=== PATIENT | female | born 1965 | race Caucasian/White ===

== ENCOUNTER 2017-01-09 22:38 | Emergency (ER) | payer OTHER ==
[2017-01-09 22:44] VITALS: BP 148/70
[2017-01-09] MEDS ORDERED: Albuterol/Ipratropium 3.0-0.5 MG/3 ML Neb Soln NEB ONE ×2 (22:56→23:41)
[2017-01-09 23:28] LABS: CHLORIDE,CL 106 mmol/L (98-107); SODIUM,NA 143 mmol/L (136-145)
[2017-01-09] MEDS ORDERED: methylPREDNISolone Sodium Succinate 125 MG/2 ML SDV IM ONE (23:41)
--- NOTE | 2017-01-09 23:48 | EDM.PDOC ---
ED HISTORY OF PRESENT ILLNESS - General Chief Complaint: Respiratory Problem Stated Complaint: cough Time Seen by Provider: 01/09/17 23:19 Source of Information: Reports: Patient History Limitations: Reports: No limitations - History of Present Illness INITIAL COMMENTS - FREE TEXT/NARRATIVE: 3 week history cough. Cough is worsening. No fevers/chills. Nausea with cough at times, no emesis. Mild loose stools but was placed on Levaquin prior to that. Had course of prednisone. Unable to afford inhaler prescribed by primary provider. Not able to sleep for 4 nights. Feels SOB at times. Denies having fevers/body aches/systemic symptoms at beginning of illness. Not tested for influenza. Normal chest xray at that time. Non-smoker. Hx Laurita's, HTN, diabetes. No other complaints. ROS otherwise negative. - Related Data Allergies/ADRs: Allergies Allergy/AdvReac Type Severity Reaction Status Date / Time hydrocodone Allergy Rash Verified 01/09/17 23:17 povidone-iodine Allergy Rash Verified 01/09/17 23:03 [From Betadine] secobarbital [From Seconal] Allergy Rash Verified 01/09/17 23:03 soap [From Betadine] Allergy Rash Verified 01/09/17 23:03 Home Meds: Home Meds Albuterol [Ventolin HFA] 0 gm INH Q4H PRN #1 inhaler 01/09/17 [Rx] Albuterol/Ipratropium [DuoNeb 3.0-0.5 MG/3 ML] 3 ml NEB Q6HRRT 01/09/17 [History ] Aspirin [Halfprin] 81 mg PO BRK 01/09/17 [History] Benzonatate [Tessalon Perles] 200 mg PO TID PRN #30 cap 01/09/17 [Rx] Doxycycline [Vibramycin] 100 mg PO BID #14 cap 01/09/17 [Rx] Levothyroxine [Synthroid] 50 mcg PO ACBREAKFAST 01/09/17 [History] Lisinopril 5 mg PO DAILY 01/09/17 [History] Metoprolol Tartrate 0.5 tab PO BID 01/09/17 [History] atorvaSTATin [Lipitor] 10 mg PO BEDTIME 01/09/17 [History] metFORMIN HCl [Metformin HCl ER] 500 mg PO DAILY 01/09/17 [History] predniSONE [Prednisone] 20 mg PO DAILY #8 tablet 01/09/17 [Rx] Past Medical History - Past Health History Medical/Surgical History: Denies Medical/Surgical History HEENT History: Reports: Impaired vision, Other (see below) Other HEENT History: wears glasses Cardiovascular History: Reports: High cholesterol, Hypertension Gastrointestinal History: Reports: GERD Musculoskeletal History: Reports: Arthritis Endocrine/Metabolic History: Reports: Diabetes, type II, Hypothyroidism, Other ( see below) Other Endocrine/Metabolic History: hasimotos - Past Surgical History HEENT Surgical History: Reports: Adenoidectomy GI Surgical History: Reports: Appendectomy, Cholecystectomy, Evelyn fundoplication Female Surgical History: Reports: Hysterectomy Musculoskeletal Surgical History: Reports: Carpal tunnel Social & Family History - Tobacco Use Smoking Status *Q: Never Smoker Second Hand Smoke Exposure: Yes - Caffeine Use Caffeine Use: Reports: None - Recreational Drug Use Recreational Drug Use: No ED ROS GENERAL - Review of Systems Review Of Systems: ROS reveals no pertinent complaints other than HPI. ED EXAM, GENERAL - Physical Exam Exam: See Below Exam Limited By: No limitations General Appearance: alert, WD/WN, obese, other (Intermittent pronounced coughing. Non-productive. ) Eye Exam: bilateral eye: EOMI, PERRL Ears: normal external exam, normal canal, hearing grossly normal Nose: No: nasal drainage Throat/Mouth: Normal inspection, Normal lips, Normal teeth, Normal gums, Normal oropharynx, Normal voice, No airway compromise Head: atraumatic, normocephalic Neck: normal inspection, supple, non-tender, full range of motion. No: lymphadenopathy (L), lymphadenopathy (R) Respiratory/Chest: no respiratory distress, no accessory muscle use, chest non- tender, wheezing (bilateral, lower halves of lungs). No: crackles, rales, rhonchi, stridor Cardiovascular: regular rate, rhythm, no edema, no murmur GI/Abdominal: soft, non tender Back Exam: normal inspection Extremities: normal inspection, normal capillary refill Neurological: alert, oriented, normal cognition, normal gait Psychiatric: normal affect, normal mood Skin Exam: Warm, Dry, Intact, Normal color Course - Vital Signs Last Recorded V/S: Last Vital Signs Temp 36.8 C 01/09/17 22:38 Pulse 89 01/10/17 00:09 Resp 18 01/09/17 22:38 BP 148/70 H 01/09/17 22:38 Pulse Ox 97 01/10/17 00:09 - Orders/Labs/Meds Orders: Active Orders 24 hr Category Date Time Status RT Aerosol Therapy [RC] ASDIRECTED Care 01/09/17 22:56 Active RT Aerosol Therapy [RC] ASDIRECTED Care 01/09/17 23:41 Ordered Chest 2V [CR] Stat Exams 01/09/17 22:54 Taken Labs: Laboratory Tests 01/09/17 01/09/17 01/09/17 Range/Units 23:10 23:10 23:10 WBC 13.9 H (4.0-10.2) K/uL RBC 4.64 (3.77-5.09) M/uL Hgb 13.5 (11.7-15.5) g/dL Hct 41.6 (34.0-46.0) % MCV 89.7 (84.0-98.0) fL MCH 29.1 (28.2-33.3) pg MCHC 32.5 (31.7-36.0) g/dL RDW 13.0 (11.2-14.1) % Plt Count 325 (150-350) K/uL Neut % (Auto) 49.2 (45.0-80.0) % Lymph % (Auto) 36.3 (10.0-50.0) % Burke % (Auto) 6.5 (2.0-14.0) % Eos % (Auto) 7.4 H (0.0-5.0) % Baso % (Auto) 0.6 (0.0-2.0) % Neut # (Auto) 6.82 (1.40-7.00) K/uL Lymph # (Auto) 5.04 H (0.50-3.50) K/uL Burke # (Auto) 0.90 (0.00-1.00) K/uL Eos # (Auto) 1.03 H (0.00-0.50) K/uL Baso # (Auto) 0.08 (0.00-0.20) K/uL D-Dimer, Quantitative < 100 (0-400) ng/mL Sodium 143 (136-145) mmol/L Potassium 3.9 (3.5-5.1) mmol/L Chloride 106 (98-107) mmol/L Carbon Dioxide 26.6 (21.0-32.0) mmol/L BUN 18 (7-18) mg/dL Creatinine 0.79 (0.51-1.17) mg/dL Est Cr Clr Drug Dosing 83.77 mL/min Estimated GFR (MDRD) > 60 mL/min Glucose 146 H (74-106) mg/dL Calcium 9.1 (8.5-10.1) mg/dL Total Bilirubin 0.4 (0.2-1.0) mg/dL AST 13 L (15-37) U/L ALT 33 (12-78) U/L Alkaline Phosphatase 94 (46-116) IU/L Total Protein 7.9 (6.4-8.2) g/dL Albumin 3.9 (3.4-5.0) g/dL Meds: Medications Discontinued Medications Generic Name Dose Route Start Last Admin Trade Name Freq PRN Reason Stop Dose Admin Albuterol/Ipratropium 3 ml 01/09/17 22:56 01/09/17 23:05 Duoneb 3.0-0.5 Mg/3 Ml [facility] 01/09/17 22:57 3 ml ONETIME ONE Administration Albuterol/Ipratropium 3 ml 01/09/17 23:41 01/09/17 23:46 Duoneb 3.0-0.5 Mg/3 Ml [facility] 01/09/17 23:42 3 ml ONETIME ONE Administration Benzonatate 200 mg 01/09/17 23:52 01/10/17 00:05 Tessalon Perles PO 01/09/17 23:53 200 mg ONETIME ONE Administration Ketorolac Tromethamine 60 mg 01/09/17 23:52 01/10/17 00:06 Toradol IM 01/09/17 23:53 60 mg ONETIME ONE Administration Methylprednisolone Sodium Succinate 125 mg 01/09/17 23:41 01/09/17 23:46 Solu-Medrol IM 01/09/17 23:42 125 mg ONETIME ONE Administration - Radiology Interpretation Free Text/Narrative:: Chest film did not show focal infiltrate suggestive of bacterial pneumonia. - Re-Assessments/Exams Free Text/Narrative Re-Assessment/Exam: 01/09/17 23:48 Mildly elevated white count. Increase in relative number lymphocytes and eosinophils noted. Chemistry and DDimer overall unremarkable. Suspect viral cause. Patient received several neb treatments as well as Toradol and Solu-medrol. Plan to have her D/C Levaquin. Will continue her on course of prednisone, albuterol inhaler, Tessalon Pearles, and Doxy. Doxy given due to prolonged worsening nature of illness/cough. Patient aware that this is more likely viral in nature and antibiotic will not be helpful. Free Text/Narrative Re-Assessment/Exam: 01/10/17 00:19 Oxygen sats and cough improved prior to discharge. Patient more comfortable. Departure - Departure Time of Disposition: 00:20 Disposition: Home, Self-Care 01 Condition: good Clinical Impression: Bronchitis Prescriptions: Albuterol [Ventolin HFA] 0 gm INH Q4H PRN #1 inhaler PRN Reason: Cough Benzonatate [Tessalon Perles] 200 mg PO TID PRN #30 cap PRN Reason: Cough Doxycycline [Vibramycin] 100 mg PO BID #14 cap predniSONE [Prednisone] 20 mg PO DAILY #8 tablet Instructions: Shortness of Breath, [id number], Acute Bronchitis, [id number] , Doxycycline tablets or capsules, Albuterol; Ipratropium inhalation aerosol, Prednisone tablets, Benzonatate capsules Forms: ED Department Discharge Additional Instructions: Watch for changes and follow up if you experience worsening problems. Follow up if you are not improved by end of week. - My Orders Last 24 Hours: My Active Orders 01/09/17 22:54 Chest 2V [CR] Stat 01/09/17 22:56 RT Aerosol Therapy [RC] ASDIRECTED 01/09/17 23:41 RT Aerosol Therapy [RC] ASDIRECTED - Assessment/Plan Last 24 Hours: My Active Orders 01/09/17 22:54 Chest 2V [CR] Stat 01/09/17 22:56 RT Aerosol Therapy [RC] ASDIRECTED 01/09/17 23:41 RT Aerosol Therapy [RC] ASDIRECTED
[2017-01-09] MEDS ORDERED: Benzonatate 100 MG Cap PO ONE (23:52)
[2017-01-09] MEDS ORDERED: Ketorolac 60 MG/2 ML SDV IM ONE (23:52)
== END 2017-01-10 00:27 | disposition home or self-care (01) ==
LOC: LL.ED 22:38
DX: J40 Bronchitis, not specified as acute or chronic (principal); E78.00 Pure hypercholesterolemia, unspecified; I10 Essential (primary) hypertension; K21.9 Gastro-esophageal reflux disease without esophagitis; E11.9 Type 2 diabetes mellitus without complications; E03.9 Hypothyroidism, unspecified; Z88.8 Allergy status to other drugs, medicaments and biological substances; Z90.710 Acquired absence of both cervix and uterus; Z79.899 Other long term (current) drug therapy; Z88.5 Allergy status to narcotic agent; Z91.09 Other allergy status, other than to drugs and biological substances; Z79.82 Long term (current) use of aspirin
CPT/HCPCS: 36415; 71020; 80053; 85025; 85379; 94640; 96372; 99283; A9270; J1885; J2930; 94664

== ENCOUNTER 2017-03-29 04:02 | Observation (INO) | payer OTHER ==
[2017-03-29] MEDS ORDERED: Aspirin 81 MG Tab.Chew CHEW ONE (04:15)
[2017-03-29] MEDS ORDERED: Famotidine 20 MG/2 ML SDV IVPUSH ONE (04:15)
[2017-03-29] MEDS ORDERED: Ticagrelor 90 MG Tab PO ONE (04:15)
--- NOTE | 2017-03-29 04:29 | EDM.PDOC ---
ED HPI GENERAL MEDICAL PROBLEM - General Chief Complaint: Chest Pain Stated Complaint: chest pressure Time Seen by Provider: 03/29/17 04:14 Source of Information: Reports: Patient, Family (), Old Records ([facility] EMR. No paper hospital chart available.) History Limitations: Reports: No Limitations - History of Present Illness INITIAL COMMENTS - FREE TEXT/NARRATIVE: Patient was brought to the emergency room via private automobile by her for evaluation of 8/10 retrosternal chest pressure, which woke her up from her sleep at about 3 AM this morning. She states that this discomfort radiates into the intrascapular region bilaterally and neck bilaterally with some mild nausea but no diaphoresis. The patient denies any heart flutter, dizziness, orthostasis , orthopnea, diaphoresis, paresthesias, recent decreased exercise tolerance, or any other anginal-type symptoms. No recent history of abdominal pain, heartburn , nausea, diarrhea, melena, gross hematochezia, or any food intolerance, including fatty foods, etc. with last episode of heartburn about one year ago. She did have a normal bowel movement yesterday. The patient also denies any recent fever, cough, wheezing, dyspnea, etc.. She has not taken any medications for her above symptoms. Onset: Today, Sudden Onset Date: 03/29/17 Onset Time: 03:00 Duration: Getting Worse, Intermittent Location: Reports: Neck, Chest, Back, Radiates to (As above) Quality: Reports: Pressure. Denies: Burning Severity: Moderate Improves with: Reports: None Worsens with: Reports: None Context: Reports: Other (As above) Associated Symptoms: Reports: Chest Pain, Nausea/Vomiting (No emesis). 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 below) (None) Mid-Sternal Chest Pain Score (Numeric/FACES): 8 - Related Data Allergies Allergy/AdvReac Type Severity Reaction Status Date / Time hydrocodone Allergy Rash Verified 03/29/17 04:33 povidone-iodine Allergy Rash Verified 03/29/17 04:33 [From Betadine] secobarbital [From [place]] Allergy Rash Verified 03/29/17 04:33 soap [From Betadine] Allergy Rash Verified 03/29/17 04:33 Home Meds: Home Meds Aspirin [Halfprin] 81 mg PO BRK 01/09/17 [History] Levothyroxine [Synthroid] 50 mcg PO ACBREAKFAST 01/09/17 [History] Lisinopril 5 mg PO DAILY 01/09/17 [History] Metoprolol Tartrate 0.5 tab PO BID 01/09/17 [History] atorvaSTATin [Lipitor] 10 mg PO BEDTIME 01/09/17 [History] metFORMIN HCl [Metformin HCl ER] 500 mg PO DAILY 01/09/17 [History] Past Medical History HEENT History: Reports: Impaired Vision, Other (See Below). Denies: Allergic Rhinitis, Cataract, Glaucoma, Hard of Hearing, Macular Degeneration, Retinal Detachment Other HEENT History: wears glasses Cardiovascular History: Reports: High Cholesterol, Hypertension. Denies: Afib, Aneurysm, Arrhythmia, Blood Clots/VTE/DVT, CAD, Heart Failure, Heart Murmur, WI , Syncope Respiratory History: Reports: None. Denies: Asthma, COPD, Intubation, Previous , PE, Pneumothorax, Sleep Apnea, TB Gastrointestinal History: Reports: Cholelithiasis, Chronic Constipation, Gastritis, GERD, Hiatal Hernia, Other (See Below). 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 Denies: Amputation, Back Pain, Chronic, Fracture, Gout, Neck Pain, Chronic, RA, SLE Neurological History: Denies: Cerebral Aneurysms, Concussion, CVA, Head Trauma, MS, Neuropathy, Peripheral, Parkinson's, Seizure, TIA Psychiatric History: Reports: None. Denies: Abuse, Victim of, ADD, ADHD, Addiction, Anxiety, Depression, Psych Hospitalization(s), PTSD, Suicide Attempt , Suicidal Ideation Endocrine/Metabolic History: Reports: Diabetes, Type II, Hypothyroidism, Multinodular Thyroid, Obesity/BMI 30+, Other (See Below). Denies: IDDM Other Endocrine/Metabolic History: Borderline goiter with multinodular thyroid and negative thyroid biopsies as below, history of Laurita's Hematologic History: Reports: None. Denies: Anemia, Blood Transfusion(s), Iron Deficiency Immunologic History: Reports: None. Denies: AIDS, HIV, SLE Oncologic (Cancer) History: Reports: Cervix, Other (See Below). Denies: Basal Cell Carcinoma, Hodgkin's Lymphoma, Leukemia, Lymphoma, Malignant Melanoma, Non- Hodgkin's Lymphoma, Squamous Cell Carcinoma, Thyroid Other Oncologic History: History of atypical Pap smears in her early 20s with procedures as below and no history of cervical cancer or subsequent abnormalities Dermatologic History: Reports: None. Denies: Eczema, Psoriasis - Infectious Disease History Infectious Disease History: Reports: Chicken Pox, Measles. Denies: C-Difficile , Meningitis, Mononucleosis, MRSA, Mumps, Pertussis (Whooping Cough), Rheumatic Fever, Rubella, Scarlet Fever, Shingles, TB, VRE - Past Surgical History Head Surgeries/Procedures: Reports: None HEENT Surgical History: Reports: Oral Surgery, Other (See Below). Denies: Adenoidectomy, Cataract Surgery, Eye Surgery, Laser Surgery, LASIK, Myringotomy w Tube(s), Naso-Sinus Surgery, Tonsillectomy Other HEENT Surgeries/Procedures: [place] teeth extraction 4 in her early 20s Cardiovascular Surgical History: Reports: None. Denies: Varicose, Vascular Surgery Respiratory Surgical History: Reports: None. Denies: Thoracentesis GI Surgical History: Reports: Appendectomy, Cholecystectomy, Colonoscopy, EGD, Evelyn Fundoplication, Other (See Below). Denies: Hernia, Abdominal, Hernia, Inguinal, Hernia Repair/Other, Polypectomy Other GI Surgeries/Procedures: Evelyn fundoplication in about 2001, last EGD in about 2001, last colonoscopy in about 2006, appendectomy at age 20, open cholecystectomy at age 27, no surgeries required for her recurrent volvulus Female Surgical History: Reports: Cervical Conization, Cervical Cryotherapy, Hysterectomy, LEEP, Salpingo-Oophorectomy, Tubal Ligation, Other (See Below). Denies: Breast Biopsy, Section, D&C, Endometrial Ablation Other Female Surgeries/Procedures: Cryotherapy and LEEP procedure at age 23, bilateral tubal ligation at age 31, complete hysterectomy including bilateral salpingo-oophorectomy at age 34 secondary to endometriosis, uterine fibroids, and dysfunctional uterine bleeding Endocrine Surgical History: Reports: Thyroid Biopsy, Other (See Below) Other Endocrine Surgeries/Procedures: Bilateral thyroid biopsy in 2016 Neurological Surgical History: Reports: None. Denies: C-Spine, Discectomy, Laminectomy, Lumbar Spine, Spinal Fusion, Vertebroplasty Musculoskeletal Surgical History: Reports: Carpal Tunnel, Shoulder Surgery, Other (See Below). Denies: Arthroscopic Knee, Arthroscopic Procedure, Ganglion Cyst, Joint Replacement, ORIF Other Musculoskeletal Surgeries/Procedures:: Arthroscopic left shoulder surgery for a bone spur and March 2015, right carpal tunnel release in 2005 Oncologic Surgical History: Reports: None. Denies: Biopsy of Breast Dermatological Surgical History: Reports: None - Past Imaging History Past Imaging History: Reports: Cardiac Echo (December 2016 at [facility] with no records available), Mammogram (Last mammogram in about 2013), Stress Testing (Cardiolite stress test in December 2016 at [facility] with no records available), Ultrasound (Thyroid ultrasound on 05/05/16). Denies: Angiography Social & Family History - Family History HEENT: Reports: Macular Degeneration, Other (See Below). Denies: Allergic Rhinitis, Cataract, Glaucoma, Retinal Detachment Other HEENT Family History: Mother with macular degeneration Cardiac: Reports: Blood Clots/VTE/DVT, Bypass, CAD, High Cholesterol, Hypertension, WI, Other (See Below). Denies: Afib, Aneurysm, Arrhythmia, Heart Failure, Heart Murmur, Pacemaker, PVD/COD, Stent, Syncope Other Cardiac Family History: Maternal grandfather with WI in his 80s of history of CABG, mother with hypertension and hyperlipidemia, mother with history of postoperative DVT after knee surgery Respiratory: Reports: None. Denies: Asthma, COPD, PE, Pneumothorax, Sleep Apnea GI: Reports: Celiac Disease, Cholelithiasis, GERD, Other (See Below). Denies: Colon Polyps, Diverticulosis, GI bleed, Hiatal Hernia, Inflammatory Bowel Disease, Irritable Bowel Syndrome, PUD Other GI Family History: Sister with history of cholelithiasis and celiac disease : Reports: None. Denies: Dialysis, Renal Calculus, Renal Disease/ Insufficiency OBGYN: Reports: None. Denies: Dysfunctional uterine bleeding, Endometriosis, Recurrent Spontaneous Musculoskeletal: Reports: None. Denies: Arthritis, Gout, RA, SLE Neurological: Reports: Seizure, Other (See Below). Denies: Alzheimers Disease, Cerebral Aneurysms, CVA, Dementia, Migraines, MS, Parkinson's, TIA Other Neurological Family History: Daughter with history of Down syndrome and seizure disorder Psychiatric: Reports: None. Denies: Abuse, Victim of, ADD, ADHD, Anxiety, Depression, Psych Hospitalization(s), PTSD, Suicide Attempt Endocrine/Metabolic: Reports: Diabetes, type II, Hypothyroidism, Other (See Below). Denies: IDDM Other Endocrine/Metabolic Family History: Mother and daughter with hypothyroidism, paternal grandmother with AODM with father having borderline diabetes Hematologic: Reports: None. Denies: Anemia, SLE, Transfusion Reaction Immunologic: Reports: None. Denies: AIDS, HIV, SLE Dermatologic: Reports: Eczema. Denies: Psoriasis Other Dermatologic Family History: Eczema in father, sister, and grandson Oncologic: Reports: Leukemia, Liver, Other (See Below). Denies: Bladder, Breast , Colon, Hodgkin's Lymphoma, Metastatic, Non-Hodgkin's Lymphoma, Skin, Thyroid Other Oncologic Family History: Maternal grandmother with liver cancer fatal in her 60s, maternal great grandmother with unknown type of leukemia fatal in her 90s - Tobacco Use Smoking Status *Q: Never Smoker Smoking Cessation Information Provided To Patient: No Second Hand Smoke Exposure: Yes Source of Second Hand Smoke Exposure: smokes Second Hand Smoke Education Provided: Yes - Caffeine Use Caffeine Use: Reports: None. Denies: Coffee, Energy Drinks, Soda, Tea - Alcohol Use Alcohol Use History: Yes Days Per Week of Alcohol Use: 0 (No previous DWIs, problems with alcohol abuse, etc.) Number of Drinks Per Day: 1 (Usually one beer every 3 months) Total Drinks Per Week: 0 Alcohol Use in Last Twelve Months: Yes Alcohol Use Frequency: Socially - Recreational Drug Use Recreational Drug Use: No Drug Use in Last 12 Months: No Recreational Drug Type: Denies: Amphetamines (Speed), Cocaine, Heroin, Inhalants (Glues, Solvents, Aerosols), LSD (Acid), Marijuana/Hashish, Methamphetamine, Morphine - Living Situation & Occupation Living situation: Reports: (2016 to her third , from her first 2 with children from both relationships), with Family ( ) 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 Denies: Fever, Chills, Malaise, Weakness , Fatigue, Night Sweats, Diaphoresis, Decreased Appetite, Weight Loss HEENT: Reports: Glasses. Denies: Dental Pain, Ear Pain, Eye Pain, Hearing Loss , Rhinitis, Sinus Problem, Throat Pain, Vertigo, Vision Change Respiratory: Reports: No Symptoms. Denies: Shortness of Breath, Wheezing, Pleuritic Chest Pain, Cough Cardiovascular: Reports: Chest Pain. Denies: Blood Pressure Problem, Claudication, Dyspnea on Exertion, Edema, Lightheadedness, Orthopnea, Palpitations, PND, Syncope Endocrine: Reports: No Symptoms. Denies: Fatigue, High Glucose, Low Glucose GI/Abdominal: Reports: Nausea. Denies: Abdominal Pain, Anorexia, Black Stool, Bloody Stool, Constipation, Diarrhea, Decreased Appetite, Difficulty Swallowing , Distension, Flatus, Hematemesis, Hematochezia, Melena, Stool Incontinence, Vomiting : Reports: No Symptoms. Denies: Discharge, Dysuria, Flank Pain, Frequency, Hematuria, Incontinence, Pain, Urgency, Urinary Retention Musculoskeletal: Reports: Neck Pain (Radiated as above), Back Pain (Radiated as above). Denies: Shoulder Pain, Arm Pain, Leg Pain, Joint Pain Skin: Reports: No Symptoms. Denies: Diaphoresis, Bruising, Wound Neurological: Reports: No Symptoms. Denies: Confusion, Dizziness, Headache, Numbness, Paresthesia, Syncope, Tingling, Weakness Psychiatric: Reports: No Symptoms. Denies: Agitation, Anxiety, Confusion, Cravings, Depression, Hallucinations, Suicidal Ideation Hematologic/Lymphatic: Reports: No Symptoms Immunologic: Reports: No Symptoms ED EXAM, GENERAL - Physical Exam Exam: See Below Exam Limited By: No Limitations General Appearance: Alert, WD/WN, No Apparent Distress Eye Exam: Bilateral Eye: EOMI, Normal Inspection (No nystagmus), PERRL Ears: Normal External Exam, Normal Canal, Hearing Grossly Normal, Normal TMs Nose: Normal Inspection, Normal Mucosa, No Blood Throat/Mouth: Normal Inspection, Normal Lips, Normal Teeth, Normal Gums, Normal Oropharynx, Normal Voice, No Airway Compromise. No: Dysphagia, Perioral Cyanosis Head: Atraumatic, Normocephalic. No: Facial Swelling, Facial Tenderness Neck: Normal Inspection, Supple, Non-Tender, Full Range of Motion. No: Carotid Bruit, Lymphadenopathy (L), Lymphadenopathy (R), Thyromegaly Respiratory/Chest: No Respiratory Distress, Lungs Clear, Normal Breath Sounds, No Accessory Muscle Use, Chest Non-Tender Cardiovascular: Normal Peripheral Pulses, No Edema, No Gallop, No JVD, No Murmur , No Rub, Bradycardia (Regular rhythm). No: Gallop/S3, Gallop/S4, Friction Rub Peripheral Pulses: 4+: Radial (L), Radial (R), Dorsalis Pedis (L), Dorsalis Pedis (R) GI/Abdominal: Normal Bowel Sounds, Soft, Non-Tender, No Organomegaly, No Distention, No Abnormal Bruit, No Mass, Pelvis Stable, Other (obese). No: Distended, Guarding (Female) Exam: Deferred Rectal (Female) Exam: Deferred Back Exam: Normal Inspection, Full Range of Motion. No: CVA Tenderness (L), CVA Tenderness (R), Muscle Spasm Extremities: Normal Inspection, Normal Range of Motion, Non-Tender, No Pedal Edema, Normal Capillary Refill. No: Cha's Sign Neurological: Alert, Oriented, CN II-XII Intact, Normal Cognition, Normal Gait, Normal Reflexes (Negative Babinski's), No Motor/Sensory Deficits Psychiatric: Normal Affect, Normal Mood Skin Exam: Warm, Dry, Intact, Normal Color, No Rash, Tattoo(s). No: Wound/ Incision Lymphatic: No Adenopathy EKG INTERPRETATION EKG Date: 03/29/17 Time: 04:10 Rhythm: NSR (Sinus bradycardia) Rate (Beats/Min): 57 [place]: Normal (Left cardiac axis) P-Wave: Present QRS: Normal (QRS interval 0.08 seconds with T-wave inversion in leads 3 and V1) ST-T: Normal QT: Normal CO/PQ Interval: 0.15 seconds Comparison: NA - No Prior EKG EKG Interpretation Comments: 1. No acute ischemic changes 2. Sinus bradycardia Course - Vital Signs Last Recorded V/S: Last Vital Signs Temp 36.8 C 03/29/17 04:02 Pulse 55 L 03/29/17 04:55 Resp 15 03/29/17 04:55 BP 124/63 03/29/17 04:55 Pulse Ox 100 03/29/17 04:55 Vital Signs - 24 hr 03/29/17 03/29/17 03/29/17 04:02 04:17 04:36 Temperature [ 36.8 C Oral] Pulse, 66 60 65 Peripheral [ Right Radial] Respiratory 16 15 15 Rate Blood Pressure 167/67 H 139/62 126/77 [Right Lower Arm] O2 Sat by Pulse 100 99 99 Oximetry 03/29/17 04:55 Temperature [ Oral] Pulse, 55 L Peripheral [ Right Radial] Respiratory 15 Rate Blood Pressure 124/63 [Right Lower Arm] O2 Sat by Pulse 100 Oximetry - Orders/Labs/Meds Orders: Active Orders 24 hr Category Date Time Status Cardiac Monitoring [RC] . DIRECTED Care 03/29/17 04:15 Active EKG Documentation Completion [RC] ASDIRECTED Care 03/29/17 04:15 Active Oxygen Therapy, ED [RC] CONTINUOUS Care 03/29/17 04:15 Active Peripheral IV Care [RC] . DIRECTED Care 03/29/17 04:15 Active Pulse Oximetry [RC] CONTINUOUS Care 03/29/17 04:15 Active Up With Assistance [RC] PFP Care 03/29/17 04:15 Active Vital Signs [RC] PFP Care 03/29/17 04:15 Active Nothing per Oral Now Diet [DIET] Diet 03/29/17 Breakfast Active Chest 1V Frontal [CR] Stat Exams 03/29/17 04:15 Ordered Sodium Chloride 0.9% [Saline Flush] Med 03/29/17 04:15 Active 10 ml FLUSH ASDIRECTED PRN Obtain Past Medical Record [OM.PC] Urgent Oth 03/29/17 04:15 Active Peripheral IV Insertion Adult [OM.PC] Stat Oth 03/29/17 04:15 Ordered Resuscitation Status Stat Resus Stat 03/29/17 04:15 Ordered EKG 12 Lead [EK] Stat Ther 03/29/17 04:15 Ordered Medication Orders Sodium Chloride (Saline Flush) 10 ml FLUSH ASDIRECTED PRN PRN Reason: Keep Vein Open Last Admin: 03/29/17 05:08 Dose: 10 ml Admin: 03/29/17 04:31 Dose: 10 ml Labs: Laboratory Tests 03/29/17 03/29/17 03/29/17 Range/Units 04:20 04:20 04:20 WBC 11.1 H (4.0-10.2) K/uL RBC 4.61 (3.77-5.09) M/uL Hgb 13.8 (11.7-15.5) g/dL Hct 41.8 (34.0-46.0) % MCV 90.7 (84.0-98.0) fL MCH 29.9 (28.2-33.3) pg MCHC 33.0 (31.7-36.0) g/dL RDW 12.6 (11.2-14.1) % Plt Count 256 (150-350) K/uL Neut % (Auto) 48.8 (45.0-80.0) % Lymph % (Auto) 41.7 (10.0-50.0) % [place] % (Auto) 7.3 (2.0-14.0) % Eos % (Auto) 1.9 (0.0-5.0) % Baso % (Auto) 0.3 (0.0-2.0) % Neut # (Auto) 5.43 (1.40-7.00) K/uL Lymph # (Auto) 4.64 H (0.50-3.50) K/uL [place] # (Auto) 0.81 (0.00-1.00) K/uL Eos # (Auto) 0.21 (0.00-0.50) K/uL Baso # (Auto) 0.03 (0.00-0.20) K/uL PT 10.4 (9.8-11.7) SEC INR 1.0 APTT 26.8 (23.5-30.0) SEC D-Dimer, Quantitative < 100 (0-400) ng/mL Sodium (136-145) mmol/L Potassium (3.5-5.1) mmol/L Chloride (98-107) mmol/L Carbon Dioxide (21.0-32.0) mmol/L BUN (7-18) mg/dL Creatinine (0.51-1.17) mg/dL Est Cr Clr Drug Dosing Estimated GFR (MDRD) mL/min Glucose (74-106) mg/dL Lactic Acid (0.4-2.0) mmol/L Uric Acid (2.6-7.2) mg/dL Calcium (8.5-10.1) mg/dL Magnesium (1.8-2.4) mg/dL Total Bilirubin (0.2-1.0) mg/dL AST (15-37) U/L ALT (12-78) U/L Alkaline Phosphatase (46-116) IU/L Creatine Kinase (26-308) U/L Creatine Kinase Index (0.0-2.5) % CK-MB (CK-2) (0.00-3.60) ng/mL Troponin I (0.000-0.056) ng/mL [id number] Pept (0-125) pg/mL Total Protein (6.4-8.2) g/dL Albumin (3.4-5.0) g/dL TSH, Ultra Sensitive (0.358-3.740) mIU/mL 03/29/17 03/29/17 Range/Units 04:20 04:20 WBC (4.0-10.2) K/uL RBC (3.77-5.09) M/uL Hgb (11.7-15.5) g/dL Hct (34.0-46.0) % MCV (84.0-98.0) fL MCH (28.2-33.3) pg MCHC (31.7-36.0) g/dL RDW (11.2-14.1) % Plt Count (150-350) K/uL Neut % (Auto) (45.0-80.0) % Lymph % (Auto) (10.0-50.0) % [place] % (Auto) (2.0-14.0) % Eos % (Auto) (0.0-5.0) % Baso % (Auto) (0.0-2.0) % Neut # (Auto) (1.40-7.00) K/uL Lymph # (Auto) (0.50-3.50) K/uL [place] # (Auto) (0.00-1.00) K/uL Eos # (Auto) (0.00-0.50) K/uL Baso # (Auto) (0.00-0.20) K/uL PT (9.8-11.7) SEC INR APTT (23.5-30.0) SEC D-Dimer, Quantitative (0-400) ng/mL Sodium 142 (136-145) mmol/L Potassium 3.8 (3.5-5.1) mmol/L Chloride 108 H (98-107) mmol/L Carbon Dioxide 25.6 (21.0-32.0) mmol/L BUN 17 (7-18) mg/dL Creatinine 0.69 (0.51-1.17) mg/dL Est Cr Clr Drug Dosing TNP Estimated GFR (MDRD) > 60 mL/min Glucose 160 H (74-106) mg/dL Lactic Acid 1.3 (0.4-2.0) mmol/L Uric Acid 5.4 (2.6-7.2) mg/dL Calcium 8.3 L (8.5-10.1) mg/dL Magnesium 1.7 L (1.8-2.4) mg/dL Total Bilirubin 0.5 (0.2-1.0) mg/dL AST 13 L (15-37) U/L ALT 27 (12-78) U/L Alkaline Phosphatase 91 (46-116) IU/L Creatine Kinase 76 (26-308) U/L Creatine Kinase Index 1.1 (0.0-2.5) % CK-MB (CK-2) 0.80 (0.00-3.60) ng/mL Troponin I 0.000 (0.000-0.056) ng/mL [id number] Pept 50 (0-125) pg/mL Total Protein 7.3 (6.4-8.2) g/dL Albumin 3.7 (3.4-5.0) g/dL TSH, Ultra Sensitive 6.577 H (0.358-3.740) mIU/mL Meds: Medications Generic Name Dose Route Start Last Admin Trade Name Freq PRN Reason Stop Dose Admin Sodium Chloride 10 ml 03/29/17 04:15 03/29/17 05:08 Saline Flush FLUSH 10 ml ASDIRECTED PRN Administration Keep Vein Open Discontinued Medications Generic Name Dose Route Start Last Admin Trade Name Freq PRN Reason Stop Dose Admin Al Hydroxide/Mg Hydroxide 30 ml 03/29/17 05:01 03/29/17 05:05 Gi Cocktail PO 03/29/17 05:02 30 ml ONETIME ONE Administration Aspirin 324 mg 03/29/17 04:15 03/29/17 04:29 Aspirin CHEW 03/29/17 04:16 324 mg ONETIME ONE Administration Famotidine 40 mg 03/29/17 04:15 03/29/17 04:30 Pepcid IVPUSH 03/29/17 04:16 40 mg ONETIME ONE Administration Metoclopramide HCl 10 mg 03/29/17 05:18 03/29/17 05:25 Reglan IVPUSH 03/29/17 05:19 10 mg ONETIME ONE Administration Ondansetron HCl 4 mg 03/29/17 05:02 03/29/17 05:05 Zofran IVPUSH 03/29/17 05:03 4 mg ONETIME ONE Administration Ticagrelor 180 mg 03/29/17 04:15 03/29/17 04:28 Brilinta PO 03/29/17 04:16 180 mg ONETIME ONE Administration - Radiology Interpretation Free Text/Narrative:: satellite project site monitor shows moderate sinus bradycardia with average heart rate in the low to mid 50s with lowest heart rate of 47. No ectopy or arrhythmia Chest x-ray, portable, shows evidence of moderate pulmonary obstructive disease with no urinary infiltrates, cardiomegaly, CHF, pneumothorax, etc. Departure - Departure Time of Disposition: 05:30 Disposition: Refer to Observation Condition: Good Clinical Impression: Chest pain, Hypertension, Hyperlipidemia, Hypomagnesemia, Hypothyroidism, COPD (chronic obstructive pulmonary disease), Osteoarthritis, Peptic reflux disease, Tobacco abuse counseling, Diabetes mellitus Instructions: Nonspecific Chest Pain, [id number] Referrals: Josee Santacruz PA-C [Primary Care Provider] - Forms: ED Department Discharge Care Plan Goals: See plan - Problem List & Annotations (1) Chest pain SNOMED Code(s): 12385239 Code(s): R07.9 - CHEST PAIN, UNSPECIFIED Status: Acute Priority: High Current Visit: Yes Onset Date: 03/29/17 Annotation/Comment:: Chest pain protocol initiated immediately upon patient's arrival to the emergency room. No beta cheyenne therapy was given secondary to her current beta cheyenne therapy and baseline bradycardia. Note recent extensive cardiac workup at [facility] including a negative echocardiogram and Cardiolite stress test by patient history. Cardiology consultation prior to discharge with low threshold for possible heart catheterization secondary to her multiple cardiac risk factors. No GI component to patient's above symptoms with some improvement with IV Pepcid, GI cocktail, and IV Reglan as above. Mild leukocytosis likely secondary to stress reaction Qualifiers: Chest pain type: chest pain due to myocardial ischemia Ischemic chest pain type: stable angina pectoris Qualified Code(s): I20.8 - Other forms of angina pectoris (2) COPD (chronic obstructive pulmonary disease) SNOMED Code(s): 56805476 Code(s): J44.9 - CHRONIC OBSTRUCTIVE PULMONARY DISEASE, UNSPECIFIED Status : Acute Priority: Medium Current Visit: Yes Onset Date: ~03/29/17 Annotation/Comment:: COPD by chest x-ray with no history of tobacco use. Consider PFTs once cardiac status has been determined. No recent fever or bronchitic type symptoms although history of reactive airway disease with previous bronchitis Qualifiers: COPD type: unspecified COPD Qualified Code(s): J44.9 - Chronic obstructive pulmonary disease, unspecified (3) Hyperlipidemia SNOMED Code(s): 31322720 Code(s): E78.5 - HYPERLIPIDEMIA, UNSPECIFIED Status: Chronic Priority: Medium Current Visit: Yes Annotation/Comment:: Lipid panel with next set of blood work Qualifiers: Hyperlipidemia type: unspecified Qualified Code(s): E78.5 - Hyperlipidemia , unspecified (4) Hypertension SNOMED Code(s): 72635154 Code(s): I10 - ESSENTIAL (PRIMARY) HYPERTENSION Status: Chronic Priority : Medium Current Visit: Yes Annotation/Comment:: Under good control in the emergency room. Decrease beta cheyenne therapy secondary to her baseline bradycardia Qualifiers: Hypertension type: essential hypertension Qualified Code(s): I10 - Essential (primary) hypertension (5) Hypomagnesemia SNOMED Code(s): 558281404 Code(s): E83.42 - HYPOMAGNESEMIA Status: Acute Priority: Medium Current Visit: Yes Annotation/Comment:: Magnesium oxide therapy which should also benefit her chronic constipation (6) Hypothyroidism SNOMED Code(s): 53490571 Code(s): E03.9 - HYPOTHYROIDISM, UNSPECIFIED Status: Chronic Priority: Medium Current Visit: Yes Annotation/Comment:: Patient has not been taking her thyroid supplement on an empty stomach. 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 Qualified Code(s): E03.8 - Other specified hypothyroidism; E06.3 - Autoimmune thyroiditis (7) Osteoarthritis SNOMED Code(s): 815862164 Code(s): M19.90 - UNSPECIFIED OSTEOARTHRITIS, UNSPECIFIED SITE Status: Chronic Priority: Medium Current Visit: Yes Annotation/Comment:: Stable by history Qualifiers: Osteoarthritis location: multiple joints Osteoarthritis type: primary Qualified Code(s): M15.0 - Primary generalized (osteo)arthritis (8) Peptic reflux disease SNOMED Code(s): 33681206 Code(s): K21.9 - GASTRO-ESOPHAGEAL REFLUX DISEASE WITHOUT ESOPHAGITIS Status: Chronic Priority: Medium Current Visit: Yes Annotation/Comment:: As above. Consider EGD once her cardiac status has been determined. Note status post Evelyn fundoplication (9) Diabetes mellitus SNOMED Code(s): 58972305 Code(s): E11.9 - TYPE 2 DIABETES MELLITUS WITHOUT COMPLICATIONS Status: Chronic Priority: Medium Current Visit: Yes Annotation/Comment:: Glycosylated hemoglobin with next set of blood work Qualifiers: Diabetes mellitus type: type 2 Diabetes mellitus complication status: without complication Diabetes mellitus care home insulin use: without care home use Qualified Code(s): E11.9 - Type 2 diabetes mellitus without complications (10) Tobacco abuse counseling SNOMED Code(s): 713385882, 515667810, [id number] Code(s): Z71.6 - TOBACCO ABUSE COUNSELING Status: Chronic Priority: Medium Current Visit: Yes Annotation/Comment:: Patient and her counseled on tobacco smoke exposure, etc. with tobacco cessation strongly encouraged and information provided - Problem List Review Problem List Initiated/Reviewed/Updated: Yes - My Orders Last 24 Hours: My Active Orders 03/29/17 04:15 Cardiac Monitoring [RC] . DIRECTED EKG Documentation Completion [RC] ASDIRECTED Oxygen Therapy, ED [RC] CONTINUOUS Peripheral IV Care [RC] . DIRECTED Pulse Oximetry [RC] CONTINUOUS Up With Assistance [RC] PFP Vital Signs [RC] PFP Chest 1V Frontal [CR] Stat Sodium Chloride 0.9% [Saline Flush] 10 ml FLUSH ASDIRECTED PRN Obtain Past Medical Record [OM.PC] Urgent Peripheral IV Insertion Adult [OM.PC] Stat Resuscitation Status Stat EKG 12 Lead [EK] Stat 03/29/17 Breakfast Nothing per Oral Now Diet [DIET] - Assessment/Plan Admission H&P: Please use this note as an admission H&P Last 24 Hours: My Active Orders 03/29/17 04:15 Cardiac Monitoring [RC] . DIRECTED EKG Documentation Completion [RC] ASDIRECTED Oxygen Therapy, ED [RC] CONTINUOUS Peripheral IV Care [RC] . DIRECTED Pulse Oximetry [RC] CONTINUOUS Up With Assistance [RC] PFP Vital Signs [RC] PFP Chest 1V Frontal [CR] Stat Sodium Chloride 0.9% [Saline Flush] 10 ml FLUSH ASDIRECTED PRN Obtain Past Medical Record [OM.PC] Urgent Peripheral IV Insertion Adult [OM.PC] Stat Resuscitation Status Stat EKG 12 Lead [EK] Stat 03/29/17 Breakfast Nothing per Oral Now Diet [DIET] Assessment:: As above Plan: As above. Extensive precautions were given to the patient and her , who are in agreement with the treatment plan. The patient's condition is stable enough for observation status and general supervision.
[2017-03-29] MEDS: Sodium Chloride 0.9% 10 ML Syringe FLUSH PRN ×3 (04:31→19:44)
[2017-03-29 04:50] LABS: CHLORIDE,CL 108 mmol/L (98-107); SODIUM,NA 142 mmol/L (136-145)
[2017-03-29] MEDS ORDERED: GI Cocktail Oral Solution 30 ML PO ONE (05:01)
[2017-03-29] MEDS ORDERED: Ondansetron 4 MG/2 ML SDV IVPUSH ONE (05:02)
[2017-03-29] MEDS ORDERED: Metoclopramide 10 MG/2 ML SDV IVPUSH ONE (05:18)
[2017-03-29] MEDS ORDERED: Temazepam 15 MG Cap PO PRN (05:36)
[2017-03-29] MEDS ORDERED: Acetaminophen 325 MG Tab PO PRN (05:36)
[2017-03-29] MEDS ORDERED: Sodium Chloride 0.9% 10 ML Syringe FLUSH PRN (05:36)
[2017-03-29] MEDS: Levothyroxine 50 MCG Tab PO SCH (07:21)
[2017-03-29] MEDS: metFORMIN 500 MG Tab.ER PO SCH (08:14)
[2017-03-29] MEDS: Lisinopril 5 MG Tab PO SCH (08:14)
[2017-03-29] MEDS ORDERED: atorvaSTATin 10 MG Tab PO SCH (20:00)
[2017-03-30] MEDS: Levothyroxine 50 MCG Tab PO SCH (07:26)
[2017-03-30 07:52] LABS: CHLORIDE,CL 108 mmol/L (98-107); SODIUM,NA 143 mmol/L (136-145)
[2017-03-30] MEDS: metFORMIN 500 MG Tab.ER PO SCH (08:22)
[2017-03-30] MEDS: Lisinopril 5 MG Tab PO SCH (08:26)
[2017-03-30 08:27] VITALS: BP 106/63
[2017-03-30] MEDS ORDERED: Magnesium Oxide 400 MG Tab PO SCH (08:45)
--- NOTE | 2017-03-30 09:06 | PCM.DCSUM1 ---
Discharge Summary - Hospital Course HPI Initial Comments: See emergency room note/admission H&P Brief History: See emergency room note/admission H&P - Discharge Data Discharge Date: 03/30/17 Discharge Disposition: Home, Self-Care 01 Condition: Good - Discharge Diagnosis/Problem(s) (1) Chest pain SNOMED Code(s): 54494685 ICD Code: R07.9 - CHEST PAIN, UNSPECIFIED Status: Acute Priority: High Current Visit: Yes Onset Date: 03/29/17 Problem Details: Negative workup for acute [place], including EKG 2 and negative cardiac enzymes 4. Note persistent moderate sinus bradycardia as above despite holding her beta cheyenne therapy for the last 24+ hours. Telephone consultation at 08:35 and 08:[address] Silva, manager continuous improvement at [facility], who is in agreement with current treatment plan, including hospital discharge today and cardiology consultation [facility] in their cardiac clinic. No beds are available in their facility today. Their clinic will inform the patient concerning holding her metformin therapy, etc. Activity restrictions were discussed. Close follow-up by regular provider as per discharge instructions. Chest pain protocol was initiated immediately upon patient's arrival to the emergency room. No beta cheyenne therapy was given secondary to her current beta cheyenne therapy and baseline bradycardia. Beta cheyenne therapy to be discontinued at discharge with further event monitor, etc. depending on her clinical course. Note recent extensive cardiac workup at [facility], including a negative echocardiogram and Cardiolite stress test by patient history. Various therapeutic options were discussed with the patient, who does wish to go to the next step catheterization, with risks and benefits of this procedure extensively discussed with the patient. Note her multiple cardiac risk factors. Also note GI component to patient's above symptoms with some improvement with IV Pepcid, GI cocktail, and IV Reglan given in the emergency room. Resolution this morning of previous mild leukocytosis likely secondary to stress reaction Qualifiers: Chest pain type: chest pain due to myocardial ischemia Ischemic chest pain type: stable angina pectoris Qualified Code(s): I20.8 - Other forms of angina pectoris (2) COPD (chronic obstructive pulmonary disease) SNOMED Code(s): 03741082 ICD Code: J44.9 - CHRONIC OBSTRUCTIVE PULMONARY DISEASE, UNSPECIFIED Status : Acute Priority: Medium Current Visit: Yes Onset Date: ~03/29/17 Problem Details: COPD by chest x-ray with no history of tobacco use. Consider PFTs once cardiac status has been determined. No recent fever or bronchitic type symptoms although history of reactive airway disease with previous bronchitis Qualifiers: COPD type: unspecified COPD Qualified Code(s): J44.9 - Chronic obstructive pulmonary disease, unspecified (3) Hyperlipidemia SNOMED Code(s): 57061109 ICD Code: E78.5 - HYPERLIPIDEMIA, UNSPECIFIED Status: Chronic Priority: Medium Current Visit: Yes Problem Details: Lipid panel yesterday was normal with current medical therapy. Patient counseled on strict ADA, low-fat, low- cholesterol diet with weight loss in moderation. Dietary consultation on an outpatient basis Qualifiers: Hyperlipidemia type: unspecified Qualified Code(s): E78.5 - Hyperlipidemia , unspecified (4) Hypertension SNOMED Code(s): 92582553 ICD Code: I10 - ESSENTIAL (PRIMARY) HYPERTENSION Status: Chronic Priority : Medium Current Visit: Yes Problem Details: Under good control during this hospitalization despite her bradycardia. Blood pressure somewhat low this morning despite discontinuation of her metoprolol with continuation of low-dose lisinopril for now secondary secondary to her diabetes. Qualifiers: Hypertension type: essential hypertension Qualified Code(s): I10 - Essential (primary) hypertension (5) Hypomagnesemia SNOMED Code(s): 000852011 ICD Code: E83.42 - HYPOMAGNESEMIA Status: Acute Priority: Medium Current Visit: Yes Problem Details: Magnesium oxide therapy as she did prior to discharge, which should also benefit her chronic constipation. Close follow- up by her regular providers (6) Hypothyroidism SNOMED Code(s): 68256842 ICD Code: E03.9 - HYPOTHYROIDISM, UNSPECIFIED Status: Chronic Priority: Medium Current Visit: Yes Problem Details: Her Synthroid will be taken at bedtime to increase compliance with strict nothing by mouth Synthroid administration. Patient has not been taking her thyroid supplement on an empty stomach. 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 Qualified Code(s): E03.8 - Other specified hypothyroidism; E06.3 - Autoimmune thyroiditis (7) Osteoarthritis SNOMED Code(s): 364300388 ICD Code: M19.90 - UNSPECIFIED OSTEOARTHRITIS, UNSPECIFIED SITE Status: Chronic Priority: Medium Current Visit: Yes Problem Details: Stable by history Qualifiers: Osteoarthritis location: multiple joints Osteoarthritis type: primary Qualified Code(s): M15.0 - Primary generalized (osteo)arthritis (8) Peptic reflux disease SNOMED Code(s): 97520290 ICD Code: K21.9 - GASTRO-ESOPHAGEAL REFLUX DISEASE WITHOUT ESOPHAGITIS Status: Chronic Priority: Medium Current Visit: Yes Problem Details: As above. Initiate Pepcid on an outpatient basis with high-dose IV Pepcid given in the emergency room upon patient's arrival. Consider EGD once her cardiac status has been determined. Note status post Evelyn fundoplication (9) Diabetes mellitus SNOMED Code(s): 34168188 ICD Code: E11.9 - TYPE 2 DIABETES MELLITUS WITHOUT COMPLICATIONS Status: Chronic Priority: Medium Current Visit: Yes Problem Details: Glycosylated hemoglobin of 7.0% yesterday. Diabetic teaching initiated by the nurses today with dietary consultation on an outpatient basis as above Qualifiers: Diabetes mellitus type: type 2 Diabetes mellitus complication status: without complication Diabetes mellitus retirement insulin use: without retirement use Qualified Code(s): E11.9 - Type 2 diabetes mellitus without complications (10) Tobacco abuse counseling SNOMED Code(s): 121327736, 167283082, 429479777 ICD Code: Z71.6 - TOBACCO ABUSE COUNSELING Status: Chronic Priority: Medium Current Visit: Yes Problem Details: Patient and her counseled on tobacco smoke exposure, etc. with tobacco cessation strongly encouraged and information provided in the emergency room yesterday (11) Bradycardia SNOMED Code(s): 15515492 ICD Code: R00.1 - BRADYCARDIA, UNSPECIFIED Status: Chronic Priority: High Current Visit: Yes Onset Date: ~03/29/17 Problem Details: As above - Patient Summary/Data Operative Procedure(s) Performed: None Complications: None Consults: Cardiology consultation as above Labs Pending at D/C: No stool during this hospitalization with H. pylori and Hemoccult not conducted Recommended Follow-up Testing/Procedures: As per discharge instructions Planned Operative Procedure(s) after DC: As per discharge instructions Hospital Course: Patient was initially evaluated in the emergency room with initiation of chest pain protocol. Subsequent admission to this facility in observation status with negative workup for acute [place] as above. Note persistent bradycardia despite discontinuation of beta cheyenne therapy as above. Otherwise treatment during this hospitalization as above with no complications, etc. - Patient Instructions Diet: Heart Healthy Diet Diet, Other: 1800-calorie ADA Activity: No Strenuous Activities (50% maximum exercise restriction until cardiac status has been determined with strict injury, driving, fall precautions as discussed) Driving: May Drive Today Showering/Bathing: May Shower Notify Provider of: Increased Pain, Nausea and/or Vomiting Other/Special Instructions: 1. Cardiology consultation at [facility] in [facility] as per discharge instructions with the [facility] to call you later today. 2. Followup with your regular provider in 7 days as directed for reevaluation and recommended magnesium level and EKG, if this has not been previously conducted by your manager continuous improvement. 3. Strict compliance with taking her Synthroid on an empty stomach, i.e., at least one hour after any oral intake with this medication to be changed at bedtime. 4. Dietary consultation on an outpatient basis with this facility to contact you concerning specific appointment - Discharge Plan Prescriptions/Med Rec: Famotidine [Pepcid] 20 mg PO BID #60 tablet Home Medications: Home Meds Aspirin [Halfprin] 81 mg PO BRK 01/09/17 [History] Lisinopril 5 mg PO DAILY 01/09/17 [History] atorvaSTATin [Lipitor] 10 mg PO BEDTIME 01/09/17 [History] metFORMIN HCl [Metformin HCl ER] 500 mg PO DAILY 01/09/17 [History] Famotidine [Pepcid] 20 mg PO BID #60 tablet 03/30/17 [Rx] Levothyroxine [Synthroid] 50 mcg PO BEDTIME #30 tab 03/30/17 [Rx] Magnesium Oxide 400 mg PO DAILY tablet 03/30/17 [Rx] Patient Handouts: Hyperglycemia, [id number], Nonspecific Chest Pain, Easy-to- Read Forms: ED Department Discharge Referrals: Josee Santacruz PA-C [Primary Care Provider] - - Discharge Summary/Plan Comment DC Time >30 min.: Yes (Coordination of care) Discharge Summary/Plan Comment: As above. Extensive precautions were given to the patient, who is in agreement with the treatment plan. See Patient Instructions for further treatment and plan. - General Info Date of Service: 03/30/17 Admission Dx/Problem (Free Text: Chest pain Functional Status: Reports: pain controlled, tolerating diet, ambulating, urinating, new symptoms (Mild headache and nonspecific nausea this morning). Denies: incentive spirometry Numeric/FACES Score: 5 (Tylenol to be given prior to discharge) - Review of Systems General: Reports: No Symptoms. Denies: Fever, Weakness, Fatigue, Malaise, Chills, Night Sweats, Appetite (Appetite good) HEENT: Reports: glasses, headaches. Denies: contact lenses, ear pain, post nasal drip, sinus congestion, sore throat, rhinitis, visual changes Pulmonary: Reports: no symptoms. Denies: shortness of breath, pleuritic chest pain, cough, hemoptysis, wheezing Cardiovascular: Reports: No Symptoms. Denies: Palpitations, Dyspnea on Exertion , Orthopnea, PND, Edema, Lightheadedness Gastrointestinal: Reports: Constipation (Stable chronic with no bowel movement during this hospitalization), Nausea. Denies: Abdominal pain, Decreased appetite, Diarrhea, Difficulty swallowing, Flatus, Hematochezia, Melena, Vomiting Genitourinary: Reports: no symptoms. Denies: dysuria, frequency, burning, pain , urgency, incontinence, hematuria, retention, flank pain Musculoskeletal: Reports: no symptoms. Denies: neck pain, shoulder pain, arm pain, leg pain Skin: Reports: no symptoms. Denies: diaphoresis, bruising Neurological: Reports: No Symptoms. Denies: Confusion, Dizziness, Headache, Numbness, Paresthesia, Seizure, Syncope, Tingling, Weakness Psychiatric: Reports: no symptoms. Denies: confusion, depression, anxiety, agitation, cravings, hallucinations, suicidal ideation, homicidal ideation - Patient Data Vitals - Most Recent: Last Vital Signs Temp 36.7 C 03/30/17 07:37 Pulse 64 03/30/17 07:37 Resp 16 03/30/17 07:37 BP 106/63 03/30/17 08:26 Pulse Ox 94 L 03/30/17 07:37 Vital Signs - 24 hr 03/29/17 03/29/17 03/29/17 11:55 16:00 19:34 Temperature [ 36.6 C 36.7 C 37.1 C Oral] Temperature [ Temporal] Pulse, 63 53 L 68 Peripheral [ Right Pulse Oximetry] Respiratory 20 18 16 Rate Blood Pressure Blood Pressure 125/62 132/60 [Left Upper Arm ] Blood Pressure 114/59 L [Right Lower Arm] Blood Pressure [Right Upper Arm] O2 Sat by Pulse 100 97 96 Oximetry 03/30/17 03/30/17 03/30/17 00:45 05:00 07:37 Temperature [ 36.4 C Oral] Temperature [ 36.6 C 36.7 C Temporal] Pulse, 48 L 52 L 64 Peripheral [ Right Pulse Oximetry] Respiratory 16 16 16 Rate Blood Pressure Blood Pressure [Left Upper Arm ] Blood Pressure 109/43 L [Right Lower Arm] Blood Pressure 113/51 L 106/68 [Right Upper Arm] O2 Sat by Pulse 100 100 94 L Oximetry 03/30/17 08:26 Temperature [ Oral] Temperature [ Temporal] Pulse, Peripheral [ Right Pulse Oximetry] Respiratory Rate Blood Pressure 106/63 Blood Pressure [Left Upper Arm ] Blood Pressure [Right Lower Arm] Blood Pressure [Right Upper Arm] O2 Sat by Pulse Oximetry Weight - Most Recent: 112.037 kg I&O - Last 24 hours: Intake & Output 03/28/17 03/29/17 03/30/17 03/31/17 06:59 06:59 06:59 06:59 Intake Total 240 Output Total 125 400 Balance -125 -160 Imaging Impressions - Last 24 hrs: residential monitor shows mild sinus arrhythmia with moderate bradycardia while sleeping with lowest heart rate of 39 yesterday and this morning while sleeping with average heart rate in the low 50s while sleeping and in the 60s while awake. No ectopy or arrhythmia Chest x-ray, portable, shows evidence of moderate pulmonary obstructive disease with no urinary infiltrates, cardiomegaly, CHF, pneumothorax, etc. Lab Results - Last 24 hrs: Laboratory Results - last 24 hr 03/29/17 03/29/17 03/29/17 Range/Units 11:10 11:10 11:10 WBC (4.0-10.2) K/uL RBC (3.77-5.09) M/uL Hgb (11.7-15.5) g/dL Hct (34.0-46.0) % MCV (84.0-98.0) fL MCH (28.2-33.3) pg MCHC (31.7-36.0) g/dL RDW (11.2-14.1) % Plt Count (150-350) K/uL Neut % (Auto) (45.0-80.0) % Lymph % (Auto) (10.0-50.0) % [place] % (Auto) (2.0-14.0) % Eos % (Auto) (0.0-5.0) % Baso % (Auto) (0.0-2.0) % Neut # (Auto) (1.40-7.00) K/uL Lymph # (Auto) (0.50-3.50) K/uL [place] # (Auto) (0.00-1.00) K/uL Eos # (Auto) (0.00-0.50) K/uL Baso # (Auto) (0.00-0.20) K/uL Sodium (136-145) mmol/L Potassium (3.5-5.1) mmol/L Chloride (98-107) mmol/L Carbon Dioxide (21.0-32.0) mmol/L BUN (7-18) mg/dL Creatinine (0.51-1.17) mg/dL Est Cr Clr Drug Dosing mL/min Estimated GFR (MDRD) mL/min Glucose (74-106) mg/dL POC Glucose (65-110) mg/dl Hemoglobin A1c 7.0 H (4.3-5.7) % Calcium (8.5-10.1) mg/dL Total Bilirubin (0.2-1.0) mg/dL AST (15-37) U/L ALT (12-78) U/L Alkaline Phosphatase (46-116) IU/L Creatine Kinase 75 (26-308) U/L Creatine Kinase Index 0.4 (0.0-2.5) % CK-MB (CK-2) 0.30 (0.00-3.60) ng/mL Troponin I 0.000 (0.000-0.056) ng/mL Total Protein (6.4-8.2) g/dL Albumin (3.4-5.0) g/dL Triglycerides 114 (30-150) mg/dL Cholesterol 129 (100-200) mg/dL LDL Cholesterol, Calc 62 (0-100) mg/dL HDL Cholesterol 44 (40-60) mg/dL 03/29/17 03/29/17 03/29/17 Range/Units 11:51 16:55 16:55 WBC (4.0-10.2) K/uL RBC (3.77-5.09) M/uL Hgb (11.7-15.5) g/dL Hct (34.0-46.0) % MCV (84.0-98.0) fL MCH (28.2-33.3) pg MCHC (31.7-36.0) g/dL RDW (11.2-14.1) % Plt Count (150-350) K/uL Neut % (Auto) (45.0-80.0) % Lymph % (Auto) (10.0-50.0) % [place] % (Auto) (2.0-14.0) % Eos % (Auto) (0.0-5.0) % Baso % (Auto) (0.0-2.0) % Neut # (Auto) (1.40-7.00) K/uL Lymph # (Auto) (0.50-3.50) K/uL [place] # (Auto) (0.00-1.00) K/uL Eos # (Auto) (0.00-0.50) K/uL Baso # (Auto) (0.00-0.20) K/uL Sodium (136-145) mmol/L Potassium (3.5-5.1) mmol/L Chloride (98-107) mmol/L Carbon Dioxide (21.0-32.0) mmol/L BUN (7-18) mg/dL Creatinine (0.51-1.17) mg/dL Est Cr Clr Drug Dosing mL/min Estimated GFR (MDRD) mL/min Glucose (74-106) mg/dL POC Glucose 105 (65-110) mg/dl Hemoglobin A1c (4.3-5.7) % Calcium (8.5-10.1) mg/dL Total Bilirubin (0.2-1.0) mg/dL AST (15-37) U/L ALT (12-78) U/L Alkaline Phosphatase (46-116) IU/L Creatine Kinase 63 (26-308) U/L Creatine Kinase Index 0.2 (0.0-2.5) % CK-MB (CK-2) 0.10 (0.00-3.60) ng/mL Troponin I 0.000 (0.000-0.056) ng/mL Total Protein (6.4-8.2) g/dL Albumin (3.4-5.0) g/dL Triglycerides (30-150) mg/dL Cholesterol (100-200) mg/dL LDL Cholesterol, Calc (0-100) mg/dL HDL Cholesterol (40-60) mg/dL 03/29/17 03/30/17 03/30/17 Range/Units 16:55 07:05 07:05 WBC 7.9 (4.0-10.2) K/uL RBC 4.63 (3.77-5.09) M/uL Hgb 14.0 (11.7-15.5) g/dL Hct 42.3 (34.0-46.0) % MCV 91.4 (84.0-98.0) fL MCH 30.2 (28.2-33.3) pg MCHC 33.1 (31.7-36.0) g/dL RDW 12.6 (11.2-14.1) % Plt Count 254 (150-350) K/uL Neut % (Auto) 53.7 (45.0-80.0) % Lymph % (Auto) 37.3 (10.0-50.0) % [place] % (Auto) 6.8 (2.0-14.0) % Eos % (Auto) 1.9 (0.0-5.0) % Baso % (Auto) 0.3 (0.0-2.0) % Neut # (Auto) 4.24 (1.40-7.00) K/uL Lymph # (Auto) 2.95 (0.50-3.50) K/uL [place] # (Auto) 0.54 (0.00-1.00) K/uL Eos # (Auto) 0.15 (0.00-0.50) K/uL Baso # (Auto) 0.02 (0.00-0.20) K/uL Sodium 143 (136-145) mmol/L Potassium 4.1 (3.5-5.1) mmol/L Chloride 108 H (98-107) mmol/L Carbon Dioxide 29.2 (21.0-32.0) mmol/L BUN 14 (7-18) mg/dL Creatinine 0.77 (0.51-1.17) mg/dL Est Cr Clr Drug Dosing 85.72 mL/min Estimated GFR (MDRD) > 60 mL/min Glucose 131 H (74-106) mg/dL POC Glucose 99 (65-110) mg/dl Hemoglobin A1c (4.3-5.7) % Calcium 8.7 (8.5-10.1) mg/dL Total Bilirubin 0.6 (0.2-1.0) mg/dL AST 14 L (15-37) U/L ALT 24 (12-78) U/L Alkaline Phosphatase 71 (46-116) IU/L Creatine Kinase 47 (26-308) U/L Creatine Kinase Index 0.2 (0.0-2.5) % CK-MB (CK-2) 0.10 (0.00-3.60) ng/mL Troponin I 0.002 (0.000-0.056) ng/mL Total Protein 6.8 (6.4-8.2) g/dL Albumin 3.3 L (3.4-5.0) g/dL Triglycerides (30-150) mg/dL Cholesterol (100-200) mg/dL LDL Cholesterol, Calc (0-100) mg/dL HDL Cholesterol (40-60) mg/dL Laboratory Tests 03/29/17 03/29/17 03/29/17 Range/Units 04:20 04:20 04:20 WBC 11.1 H (4.0-10.2) K/uL RBC 4.61 (3.77-5.09) M/uL Hgb 13.8 (11.7-15.5) g/dL Hct 41.8 (34.0-46.0) % MCV 90.7 (84.0-98.0) fL MCH 29.9 (28.2-33.3) pg MCHC 33.0 (31.7-36.0) g/dL RDW 12.6 (11.2-14.1) % Plt Count 256 (150-350) K/uL Neut % (Auto) 48.8 (45.0-80.0) % Lymph % (Auto) 41.7 (10.0-50.0) % [place] % (Auto) 7.3 (2.0-14.0) % Eos % (Auto) 1.9 (0.0-5.0) % Baso % (Auto) 0.3 (0.0-2.0) % Neut # (Auto) 5.43 (1.40-7.00) K/uL Lymph # (Auto) 4.64 H (0.50-3.50) K/uL [place] # (Auto) 0.81 (0.00-1.00) K/uL Eos # (Auto) 0.21 (0.00-0.50) K/uL Baso # (Auto) 0.03 (0.00-0.20) K/uL PT 10.4 (9.8-11.7) SEC INR 1.0 APTT 26.8 (23.5-30.0) SEC D-Dimer, Quantitative < 100 (0-400) ng/mL Sodium (136-145) mmol/L Potassium (3.5-5.1) mmol/L Chloride (98-107) mmol/L Carbon Dioxide (21.0-32.0) mmol/L BUN (7-18) mg/dL Creatinine (0.51-1.17) mg/dL Est Cr Clr Drug Dosing Estimated GFR (MDRD) mL/min Glucose (74-106) mg/dL POC Glucose (65-110) mg/dl Hemoglobin A1c (4.3-5.7) % Lactic Acid (0.4-2.0) mmol/L Uric Acid (2.6-7.2) mg/dL Calcium (8.5-10.1) mg/dL Magnesium (1.8-2.4) mg/dL Total Bilirubin (0.2-1.0) mg/dL AST (15-37) U/L ALT (12-78) U/L Alkaline Phosphatase (46-116) IU/L Creatine Kinase (26-308) U/L Creatine Kinase Index (0.0-2.5) % CK-MB (CK-2) (0.00-3.60) ng/mL Troponin I (0.000-0.056) ng/mL [id number] Pept (0-125) pg/mL Total Protein (6.4-8.2) g/dL Albumin (3.4-5.0) g/dL Triglycerides (30-150) mg/dL Cholesterol (100-200) mg/dL LDL Cholesterol, Calc (0-100) mg/dL HDL Cholesterol (40-60) mg/dL TSH, Ultra Sensitive (0.358-3.740) mIU/mL 03/29/17 03/29/17 03/29/17 Range/Units 04:20 04:20 07:48 WBC (4.0-10.2) K/uL RBC (3.77-5.09) M/uL Hgb (11.7-15.5) g/dL Hct (34.0-46.0) % MCV (84.0-98.0) fL MCH (28.2-33.3) pg MCHC (31.7-36.0) g/dL RDW (11.2-14.1) % Plt Count (150-350) K/uL Neut % (Auto) (45.0-80.0) % Lymph % (Auto) (10.0-50.0) % [place] % (Auto) (2.0-14.0) % Eos % (Auto) (0.0-5.0) % Baso % (Auto) (0.0-2.0) % Neut # (Auto) (1.40-7.00) K/uL Lymph # (Auto) (0.50-3.50) K/uL [place] # (Auto) (0.00-1.00) K/uL Eos # (Auto) (0.00-0.50) K/uL Baso # (Auto) (0.00-0.20) K/uL PT (9.8-11.7) SEC INR APTT (23.5-30.0) SEC D-Dimer, Quantitative (0-400) ng/mL Sodium 142 (136-145) mmol/L Potassium 3.8 (3.5-5.1) mmol/L Chloride 108 H (98-107) mmol/L Carbon Dioxide 25.6 (21.0-32.0) mmol/L BUN 17 (7-18) mg/dL Creatinine 0.69 (0.51-1.17) mg/dL Est Cr Clr Drug Dosing TNP Estimated GFR (MDRD) > 60 mL/min Glucose 160 H (74-106) mg/dL POC Glucose 116 H (65-110) mg/dl Hemoglobin A1c (4.3-5.7) % Lactic Acid 1.3 (0.4-2.0) mmol/L Uric Acid 5.4 (2.6-7.2) mg/dL Calcium 8.3 L (8.5-10.1) mg/dL Magnesium 1.7 L (1.8-2.4) mg/dL Total Bilirubin 0.5 (0.2-1.0) mg/dL AST 13 L (15-37) U/L ALT 27 (12-78) U/L Alkaline Phosphatase 91 (46-116) IU/L Creatine Kinase 76 (26-308) U/L Creatine Kinase Index 1.1 (0.0-2.5) % CK-MB (CK-2) 0.80 (0.00-3.60) ng/mL Troponin I 0.000 (0.000-0.056) ng/mL [id number] Pept 50 (0-125) pg/mL Total Protein 7.3 (6.4-8.2) g/dL Albumin 3.7 (3.4-5.0) g/dL Triglycerides (30-150) mg/dL Cholesterol (100-200) mg/dL LDL Cholesterol, Calc (0-100) mg/dL HDL Cholesterol (40-60) mg/dL TSH, Ultra Sensitive 6.577 H (0.358-3.740) mIU/mL 03/29/17 03/29/17 03/29/17 Range/Units 11:10 11:10 11:10 WBC (4.0-10.2) K/uL RBC (3.77-5.09) M/uL Hgb (11.7-15.5) g/dL Hct (34.0-46.0) % MCV (84.0-98.0) fL MCH (28.2-33.3) pg MCHC (31.7-36.0) g/dL RDW (11.2-14.1) % Plt Count (150-350) K/uL Neut % (Auto) (45.0-80.0) % Lymph % (Auto) (10.0-50.0) % [place] % (Auto) (2.0-14.0) % Eos % (Auto) (0.0-5.0) % Baso % (Auto) (0.0-2.0) % Neut # (Auto) (1.40-7.00) K/uL Lymph # (Auto) (0.50-3.50) K/uL [place] # (Auto) (0.00-1.00) K/uL Eos # (Auto) (0.00-0.50) K/uL Baso # (Auto) (0.00-0.20) K/uL PT (9.8-11.7) SEC INR APTT (23.5-30.0) SEC D-Dimer, Quantitative (0-400) ng/mL Sodium (136-145) mmol/L Potassium (3.5-5.1) mmol/L Chloride (98-107) mmol/L Carbon Dioxide (21.0-32.0) mmol/L BUN (7-18) mg/dL Creatinine (0.51-1.17) mg/dL Est Cr Clr Drug Dosing Estimated GFR (MDRD) mL/min Glucose (74-106) mg/dL POC Glucose (65-110) mg/dl Hemoglobin A1c 7.0 H (4.3-5.7) % Lactic Acid (0.4-2.0) mmol/L Uric Acid (2.6-7.2) mg/dL Calcium (8.5-10.1) mg/dL Magnesium (1.8-2.4) mg/dL Total Bilirubin (0.2-1.0) mg/dL AST (15-37) U/L ALT (12-78) U/L Alkaline Phosphatase (46-116) IU/L Creatine Kinase 75 (26-308) U/L Creatine Kinase Index 0.4 (0.0-2.5) % CK-MB (CK-2) 0.30 (0.00-3.60) ng/mL Troponin I 0.000 (0.000-0.056) ng/mL [id number] Pept (0-125) pg/mL Total Protein (6.4-8.2) g/dL Albumin (3.4-5.0) g/dL Triglycerides 114 (30-150) mg/dL Cholesterol 129 (100-200) mg/dL LDL Cholesterol, Calc 62 (0-100) mg/dL HDL Cholesterol 44 (40-60) mg/dL TSH, Ultra Sensitive (0.358-3.740) mIU/mL 03/29/17 03/29/17 03/29/17 Range/Units 11:51 16:55 16:55 WBC (4.0-10.2) K/uL RBC (3.77-5.09) M/uL Hgb (11.7-15.5) g/dL Hct (34.0-46.0) % MCV (84.0-98.0) fL MCH (28.2-33.3) pg MCHC (31.7-36.0) g/dL RDW (11.2-14.1) % Plt Count (150-350) K/uL Neut % (Auto) (45.0-80.0) % Lymph % (Auto) (10.0-50.0) % [place] % (Auto) (2.0-14.0) % Eos % (Auto) (0.0-5.0) % Baso % (Auto) (0.0-2.0) % Neut # (Auto) (1.40-7.00) K/uL Lymph # (Auto) (0.50-3.50) K/uL [place] # (Auto) (0.00-1.00) K/uL Eos # (Auto) (0.00-0.50) K/uL Baso # (Auto) (0.00-0.20) K/uL PT (9.8-11.7) SEC INR APTT (23.5-30.0) SEC D-Dimer, Quantitative (0-400) ng/mL Sodium (136-145) mmol/L Potassium (3.5-5.1) mmol/L Chloride (98-107) mmol/L Carbon Dioxide (21.0-32.0) mmol/L BUN (7-18) mg/dL Creatinine (0.51-1.17) mg/dL Est Cr Clr Drug Dosing Estimated GFR (MDRD) mL/min Glucose (74-106) mg/dL POC Glucose 105 (65-110) mg/dl Hemoglobin A1c (4.3-5.7) % Lactic Acid (0.4-2.0) mmol/L Uric Acid (2.6-7.2) mg/dL Calcium (8.5-10.1) mg/dL Magnesium (1.8-2.4) mg/dL Total Bilirubin (0.2-1.0) mg/dL AST (15-37) U/L ALT (12-78) U/L Alkaline Phosphatase (46-116) IU/L Creatine Kinase 63 (26-308) U/L Creatine Kinase Index 0.2 (0.0-2.5) % CK-MB (CK-2) 0.10 (0.00-3.60) ng/mL Troponin I 0.000 (0.000-0.056) ng/mL Vdr-C-Kteopmsalkf Pept (0-125) pg/mL Total Protein (6.4-8.2) g/dL Albumin (3.4-5.0) g/dL Triglycerides (30-150) mg/dL Cholesterol (100-200) mg/dL LDL Cholesterol, Calc (0-100) mg/dL HDL Cholesterol (40-60) mg/dL TSH, Ultra Sensitive (0.358-3.740) mIU/mL 03/29/17 03/30/17 03/30/17 Range/Units 16:55 07:05 07:05 WBC 7.9 (4.0-10.2) K/uL RBC 4.63 (3.77-5.09) M/uL Hgb 14.0 (11.7-15.5) g/dL Hct 42.3 (34.0-46.0) % MCV 91.4 (84.0-98.0) fL MCH 30.2 (28.2-33.3) pg MCHC 33.1 (31.7-36.0) g/dL RDW 12.6 (11.2-14.1) % Plt Count 254 (150-350) K/uL Neut % (Auto) 53.7 (45.0-80.0) % Lymph % (Auto) 37.3 (10.0-50.0) % [place] % (Auto) 6.8 (2.0-14.0) % Eos % (Auto) 1.9 (0.0-5.0) % Baso % (Auto) 0.3 (0.0-2.0) % Neut # (Auto) 4.24 (1.40-7.00) K/uL Lymph # (Auto) 2.95 (0.50-3.50) K/uL [place] # (Auto) 0.54 (0.00-1.00) K/uL Eos # (Auto) 0.15 (0.00-0.50) K/uL Baso # (Auto) 0.02 (0.00-0.20) K/uL PT (9.8-11.7) SEC INR APTT (23.5-30.0) SEC D-Dimer, Quantitative (0-400) ng/mL Sodium 143 (136-145) mmol/L Potassium 4.1 (3.5-5.1) mmol/L Chloride 108 H (98-107) mmol/L Carbon Dioxide 29.2 (21.0-32.0) mmol/L BUN 14 (7-18) mg/dL Creatinine 0.77 (0.51-1.17) mg/dL Est Cr Clr Drug Dosing 85.72 Estimated GFR (MDRD) > 60 mL/min Glucose 131 H (74-106) mg/dL POC Glucose 99 (65-110) mg/dl Hemoglobin A1c (4.3-5.7) % Lactic Acid (0.4-2.0) mmol/L Uric Acid (2.6-7.2) mg/dL Calcium 8.7 (8.5-10.1) mg/dL Magnesium (1.8-2.4) mg/dL Total Bilirubin 0.6 (0.2-1.0) mg/dL AST 14 L (15-37) U/L ALT 24 (12-78) U/L Alkaline Phosphatase 71 (46-116) IU/L Creatine Kinase 47 (26-308) U/L Creatine Kinase Index 0.2 (0.0-2.5) % CK-MB (CK-2) 0.10 (0.00-3.60) ng/mL Troponin I 0.002 (0.000-0.056) ng/mL [id number] Pept (0-125) pg/mL Total Protein 6.8 (6.4-8.2) g/dL Albumin 3.3 L (3.4-5.0) g/dL Triglycerides (30-150) mg/dL Cholesterol (100-200) mg/dL LDL Cholesterol, Calc (0-100) mg/dL HDL Cholesterol (40-60) mg/dL TSH, Ultra Sensitive (0.358-3.740) mIU/mL JANNIE Results - Last 24 hrs: None Med Orders - Current: Current Medications Acetaminophen (Tylenol) 650 mg PO Q4H PRN PRN Reason: Pain Last Admin: 03/30/17 08:26 Dose: 650 mg Atorvastatin Calcium (Lipitor) 10 mg PO BEDTIME [facility] Last Admin: 03/29/17 19:33 Dose: 10 mg Levothyroxine Sodium (Synthroid) 50 mcg PO ACBREAKFAST [facility] Last Admin: 03/30/17 07:26 Dose: 50 mcg Lisinopril (Prinivil) 5 mg PO DAILY [facility] Last Admin: 03/30/17 08:26 Dose: 5 mg Magnesium Oxide (Magnesium Oxide) 400 mg PO DAILY [facility] Metformin HCl (Glucophage Xr) 500 mg PO DAILY [facility] Last Admin: 03/30/17 08:22 Dose: 500 mg Sodium Chloride (Saline Flush) 10 ml FLUSH ASDIRECTED PRN PRN Reason: Keep Vein Open Last Admin: 03/29/17 19:44 Dose: 10 ml Sodium Chloride (Saline Flush) 10 ml FLUSH Q12HR PRN PRN Reason: Keep Vein Open Temazepam (Restoril) 15 mg PO 2000 PRN PRN Reason: Insomnia Discontinued Medications Al Hydroxide/Mg Hydroxide (Gi Cocktail) 30 ml PO ONETIME ONE Stop: 03/29/17 05:02 Last Admin: 03/29/17 05:05 Dose: 30 ml Aspirin (Aspirin) 324 mg CHEW ONETIME ONE Stop: 03/29/17 04:16 Last Admin: 03/29/17 04:29 Dose: 324 mg Famotidine (Pepcid) 40 mg IVPUSH ONETIME ONE Stop: 03/29/17 04:16 Last Admin: 03/29/17 04:30 Dose: 40 mg Metoclopramide HCl (Reglan) 10 mg IVPUSH ONETIME ONE Stop: 03/29/17 05:19 Last Admin: 03/29/17 05:25 Dose: 10 mg Ondansetron HCl (Zofran) 4 mg IVPUSH ONETIME ONE Stop: 03/29/17 05:03 Last Admin: 03/29/17 05:05 Dose: 4 mg Ticagrelor (Brilinta) 180 mg PO ONETIME ONE Stop: 03/29/17 04:16 Last Admin: 03/29/17 04:28 Dose: 180 mg - Exam Quality Assessment: Reports: supplemental oxygen, DVT prophylaxis. Denies: central line/PICC, urine catheter, skin breakdown, restraints General: Reports: alert, oriented, cooperative, no acute distress HEENT: Reports: Pupils equal, Pupils reactive, EOMI, Mucous membr. moist/pink Neck: Reports: supple, trachea midline, no JVD, no thyromegaly. Denies: carotid bruit Lungs: Reports: Clear to auscultation, Normal respiratory effort. Denies: Rub Cardiovascular: Reports: Regular Rate, Regular Rhythm, No Murmurs. Denies: Bradycardia (No bradycardia at time of exam), Gallops, Rubs Abdomen: Reports: bowel sounds present, soft, no tenderness, no distension, other (Obese). Denies: guarding, CVA tenderness (Female) Exam: Deferred Rectal (Female) Exam: Deferred Back Exam: Reports: Normal Inspection, Full Range of Motion. Denies: CVA Tenderness (L), CVA Tenderness (R), Muscle Spasm Extremities: Reports: no edema, normal pulses, no tenderness/swelling, no calf tenderness Skin: Reports: warm, dry, intact. Denies: ecchymosis Neurological: Reports: no new focal deficit, other (No clinical orthostasis) Psy/Mental Status: Reports: alert, normal affect, normal mood EKG INTERPRETATION EKG Date: 03/30/17 Time: 07:15 Rhythm: NSR Rate (Beats/Min): 60 [place]: Normal (Left cardiac axis) P-Wave: Present (Mild diffuse biphasic P waves) QRS: Normal (QRS interval 0.08 seconds with T-wave inversion in leads 3 and V1) ST-T: Normal QT: Normal VT/PQ Interval: 0.16 seconds Comparison: No Change (Last EKG on 03/29/17) EKG Interpretation Comments: 1. No acute ischemic changes *Q Meaningful Use (DIS) - VTE *Q VTE Criteria *Q: - Stroke *Q Stroke Criteria *Q: - AMI *Q AMI Criteria *Q:
== END 2017-03-30 11:16 | disposition home or self-care (01) ==
LOC: LL.ED 04:02 → LL.MS 05:10
PROVIDERS: ADMIT Family Medicine; ATTEND Family Medicine
DX: R07.9 Chest pain, unspecified (principal); Z79.82 Long term (current) use of aspirin; R55 Syncope and collapse; E11.9 Type 2 diabetes mellitus without complications; Z79.84 Long term (current) use of oral hypoglycemic drugs; E78.00 Pure hypercholesterolemia, unspecified; I10 Essential (primary) hypertension; K21.9 Gastro-esophageal reflux disease without esophagitis; K44.9 Diaphragmatic hernia without obstruction or gangrene; E03.9 Hypothyroidism, unspecified; M19.90 Unspecified osteoarthritis, unspecified site; J44.9 Chronic obstructive pulmonary disease, unspecified; E83.42 Hypomagnesemia; Z71.6 Tobacco abuse counseling; R00.1 Bradycardia, unspecified
CPT/HCPCS: 36415; 71010; 80053; 80061; 82550; 82553; 82962; 83036; 83605; 83735; 83880; 84443; 84484; 84550; 85025; 85379; 85610; 85730; 93005; 96374; 96375; 99285; A9270; G0378; J2405; J2765; J7050; S0028

== ENCOUNTER 2023-06-03 10:18 | Emergency (ER) | payer OTHER ==
[2023-06-03] MEDS ORDERED: Ketorolac 30 MG/ML SDV IM ONE (10:29)
[2023-06-03] MEDS ORDERED: Baclofen 10 MG Tab PO ONE (10:30)
[2023-06-03 10:41] LABS: CARBON DIOXIDE,CO2 23.5 mmol/L (21.0-32.0); CREATININE 0.79 mg/dL (0.51-1.17); EST CRCL DRUG DOSING (CG) 78.25 mL/min; POTASSIUM,K 3.9 mmol/L (3.5-5.1)
[2023-06-03 10:55] LABS: ANION GAP 13.4 meq/L (7-15)
[2023-06-03 11:57] VITALS: BP 106/55; PULSE 66
== END 2023-06-03 12:00 | disposition home or self-care (01) ==
LOC: LL.ED 10:18
DX: M62.830 Muscle spasm of back (principal); I10 Essential (primary) hypertension; E78.00 Pure hypercholesterolemia, unspecified; J44.9 Chronic obstructive pulmonary disease, unspecified; E11.9 Type 2 diabetes mellitus without complications; E03.9 Hypothyroidism, unspecified; Z88.5 Allergy status to narcotic agent; Z88.8 Allergy status to other drugs, medicaments and biological substances; Z79.899 Other long term (current) drug therapy
CPT/HCPCS: 36415; 80048; 96372; 99283; 99284; A9270-GY; J1885

== ENCOUNTER 2023-06-04 22:25 | Emergency (ER) | payer OTHER ==
[2023-06-04 22:30] VITALS: BP 132/78
[2023-06-04] MEDS: HYDROmorphone 1 MG/ML Syringe IVPUSH ONE (22:51)
[2023-06-04] MEDS: Ondansetron 4 MG/2 ML SDV IVPUSH PRN (23:01)
[2023-06-04] MEDS: Sodium Chloride 0.9% 10 ML Syringe FLUSH PRN (23:06)
[2023-06-04] MEDS: Take Home: Acetaminophen/HYDROcodone 325-10 MG, 5 Tab Pack PO ONE (23:14)
[2023-06-04 23:44] VITALS: PULSE 98
== END 2023-06-04 23:53 | disposition home or self-care (01) ==
LOC: LL.ED 22:25
DX: M54.41 Lumbago with sciatica, right side (principal); E11.9 Type 2 diabetes mellitus without complications; E78.00 Pure hypercholesterolemia, unspecified; Z88.5 Allergy status to narcotic agent; Z91.09 Other allergy status, other than to drugs and biological substances; Z91.041 Radiographic dye allergy status; Z79.899 Other long term (current) drug therapy; Z79.84 Long term (current) use of oral hypoglycemic drugs
CPT/HCPCS: 94761; 96374; 96375; 99283; 99283-25; A9270-GY; J1170; J1642; J2405; J3490